=== PATIENT | female | born 1995 | race Caucasian/White ===

== ENCOUNTER 2017-01-26 12:15 | Emergency (ER) | payer OTHER ==
[~2017-01-26] VITALS: Ht 170.2 cm; Wt 78.9 kg
[2017-01-26 12:46] LABS: URINE SOURCE CLEAN CATCH
[2017-01-26 13:12] LABS: URINE APPEARANCE CLEAR; URINE BILIRUBIN NEG (NEG); URINE BLOOD NEG (NEG); URINE COLOR YELLOW; URINE GLUCOSE NORM (NORM); URINE KETONE NEG (NEG); URINE LEUKOCYTE ESTERASE NEG (NEG); URINE NITRATE NEG (NEG); URINE PROTEIN NEG (NEG); URINE SPECIFIC GRAVITY 1.005 (1.003-1.035); URINE UROBILINOGEN NORM (NORM)
[2017-01-26 13:13] LABS: CULTURE INDICATED? NO
[2017-01-27 23:49] LABS: CHLAMYDIA TRACH Detected (Not Detected); N GONOR Not Detected (Not Detected)
== END 2017-01-26 13:52 | disposition left against medical advice (07) ==
LOC: CED 12:15 → CFTX 12:15 → CED 13:09 → CFTX 13:09
PROVIDERS: Nurse Practitioner
DX: N89.8 Other specified noninflammatory disorders of vagina (principal); Z98.51 Tubal ligation status
CPT/HCPCS: 81003; 84703; 87491; 87591; 87808; 87905; 99283